=== PATIENT | male | born 1935 | race Caucasian/White ===

== ENCOUNTER 2019-07-09 12:34 | Emergency (ER) | payer MEDICARE ==
[~2019-07-09] VITALS: Ht 177.8 cm; Wt 63.0 kg
--- NOTE | 2019-07-09 12:40 | NUR ---
minimal bleeding at triage, applied nose clamp
[2019-07-09] MEDS ORDERED: oxymetazoline 15 ML nasal spray NS ONE (13:05)
[2019-07-09] MEDS ORDERED: LISI-600 PO (13:25)
[2019-07-09 14:01] VITALS: BP 134/67
== END 2019-07-09 14:19 | disposition home or self-care (01) ==
LOC: ER 12:35
DX: R04.0 Epistaxis (principal); Z79.899 Other long term (current) drug therapy
CPT/HCPCS: 99282

== ENCOUNTER 2021-10-16 12:34 | Emergency (ER) | payer MEDICARE ==
[~2021-10-16] VITALS: Ht 177.8 cm; Wt 72.8 kg
[~2021-10-16 12:34] MED LIST: LISI20TA28 PO
[2021-10-16 13:19] LABS: BASOPHILS % (AUTO) 0.7 % (0-1); EOSINOPHILS # (AUTO) 0.2 X10'3 (0-0.9); EOSINOPHILS % (AUTO) 2.4 % (0-6); HEMATOCRIT 39.4 % (42.0-52.0); HEMOGLOBIN 13.2 g/dl (14.0-17.9); LYMPHOCYTES # (AUTO) 1.2 X10'3 (1.1-4.8); LYMPHOCYTES % (AUTO) 19.3 % (21-51); MEAN CORPUSCULAR HEMOGLOBIN 28.7 PG (27.0-31.0); MEAN CORPUSCULAR HGB CONC 33.5 g/dL (33.0-36.5); MEAN CORPUSCULAR VOLUME 85.8 FL (78-98); MONOCYTES # (AUTO) 0.5 X10'3 (0-0.9); MONOCYTES % (AUTO) 8.3 % (2-12); NEUTROPHILS # (AUTO) 4.4 X10'3 (1.8-7.7); NEUTROPHILS % (AUTO) 69.3 % (42-75); PLATELET COUNT 170 X10'3 (140-440); RED CELL DISTRIBUTION WIDTH 14.5 % (11.5-14.5); WHITE BLOOD COUNT 6.3 X10'3 (4.5-11.0)
[2021-10-16 13:37] LABS: ALANINE AMINOTRANSFERASE 30 U/L (12-78); ALBUMIN 4.1 G/DL (3.4-5.0); ALBUMIN/GLOBULIN RATIO 1.2 (1.1-1.5); ALKALINE PHOSPHATASE 61 IU/L (46-116); ANION GAP 5 (8-16); ASPARTATE AMINO TRANSFERASE 20 U/L (10-37); BILIRUBIN,TOTAL 0.6 MG/DL (0.1-1.0); BLOOD UREA NITROGEN 24 MG/DL (7-18); BUN/CREATININE RATIO 23.8 (5.4-32.0); CALCIUM 9.3 MG/DL (8.5-10.1); CHLORIDE 104 MMOL/L (99-107); CREATININE 1.01 MG/DL (0.60-1.10); GLUCOSE 93 MG/DL (70-104); POTASSIUM 4.7 MMOL/L (3.5-5.1); SODIUM 139 MMOL/L (135-145); TOTAL CARBON DIOXIDE 30.1 MMOL/L (24-32); TOTAL PROTEIN 7.5 G/DL (6.4-8.2); eGFR 70 ML/MIN
[2021-10-16 15:57] VITALS: BP 152/84
== END 2021-10-16 15:58 | disposition home or self-care (01) ==
LOC: ER 12:34
DX: R07.89 Other chest pain (principal); I10 Essential (primary) hypertension; I48.91 Unspecified atrial fibrillation; Z79.899 Other long term (current) drug therapy
CPT/HCPCS: 36415; 71045; 80053; 83880; 84484; 85025; 93005; 99285

== ENCOUNTER 2022-01-09 06:04 | Day surgery (SDC) | payer MEDICARE ==
[2022-01-08 12:27] LABS: HEMOGLOBIN 12.9 g/dl (14.0-17.9); MEAN CORPUSCULAR HGB CONC 33.1 g/dL (33.0-36.5); RED CELL DISTRIBUTION WIDTH 14.5 % (11.5-14.5)
[2022-01-08 12:29] LABS: BASOPHILS % (AUTO) 0.5 % (0-1); EOSINOPHILS # (AUTO) 0.1 X10'3 (0-0.9); EOSINOPHILS % (AUTO) 2.8 % (0-6); MEAN CORPUSCULAR HEMOGLOBIN 28.5 PG (27.0-31.0); MEAN PLATELET VOLUME 7.9 FL (7.4-10.4); MONOCYTES # (AUTO) 0.4 X10'3 (0-0.9); MONOCYTES % (AUTO) 7.3 % (2-12); NEUTROPHILS # (AUTO) 3.3 X10'3 (1.8-7.7); NEUTROPHILS % (AUTO) 69.4 % (42-75); PLATELET COUNT 156 X10'3 (140-440); RED BLOOD COUNT 4.53 X10'6 (4.70-6.10); WHITE BLOOD COUNT 4.8 X10'3 (4.5-11.0)
[2022-01-08 12:34] LABS: ALBUMIN 3.6 G/DL (3.4-5.0); ANION GAP 3 (8-16); BLOOD UREA NITROGEN 23 MG/DL (7-18); BUN/CREATININE RATIO 18.5 (5.4-32.0); CHLORIDE 104 MMOL/L (99-107); CREATININE 1.24 MG/DL (0.60-1.10); GLUCOSE 141 MG/DL (70-104); POTASSIUM 4.6 MMOL/L (3.5-5.1); SODIUM 137 MMOL/L (135-145); TOTAL CARBON DIOXIDE 29.9 MMOL/L (24-32); eGFR 55 ML/MIN
[2022-01-08 12:38] LABS: APTT 24 SECONDS (22-32)
[~2022-01-09] VITALS: Ht 177.8 cm; Wt 72.0 kg
[2022-01-09] VITALS (12 sets, daily range): BP systolic 114–153; BP diastolic 56–79
[2022-01-09] MEDS ORDERED: diphenhydrAMINE 25mg capsule PO PRN (06:25)
[2022-01-09] MEDS ORDERED: LIDOcaine/PRILOcaine 5gm cream TP ONE (06:25)
[2022-01-09] MEDS ORDERED: LORazepam 0.5 MG tablet PO PRN (06:25)
[2022-01-09] MEDS ORDERED: normal saline 1,000 ML IV SCH (06:25)
[2022-01-09] MEDS ORDERED: APIX5TAB3 PO (06:30)
[2022-01-09] MEDS ORDERED: METO-395 PO (06:30)
[2022-01-09] MEDS ORDERED: LOSA25TA41 PO (06:30)
[2022-01-09] MEDS ORDERED: DILT-35 PO (06:30)
[2022-01-09] MEDS ORDERED: MELA2.5T PO (06:31)
[2022-01-09] MEDS ORDERED: CELE-193 PO (06:32)
[2022-01-09] MEDS ORDERED: OMEG1CAP46 PO (06:32)
[2022-01-09] MEDS ORDERED: ASPI-101 PO (06:33)
[2022-01-09] MEDS ORDERED: MULT-1085 PO (06:33)
[2022-01-09] MEDS ORDERED: sodium bicarbonate (8.4%) inj. 150 ML in dextrose 5%-water 1,000 ML IV ONE (06:45)
[2022-01-09] MEDS ORDERED: nitroGLYCERIN-Tridil 50MG/D5W 250 ML IV ONE (07:39)
[2022-01-09] MEDS ORDERED: LIDOcaine 1%/PF 5ML 10 MG/ML VIAL ONE (07:39)
[2022-01-09] MEDS ORDERED: heparin 1,000unit/ml 10ml vial 10 ML ONE (07:39)
[2022-01-09] MEDS ORDERED: verapamil 2.5 mg/ml inj IV ONE (07:39)
[2022-01-09] MEDS ORDERED: midazolam 1 mg/ML 2ml injection ONE (07:39)
[2022-01-09] MEDS ORDERED: iohexol 350MG/ML 100ml bottle IV ONE (07:39)
[2022-01-09] MEDS ORDERED: fentaNYL/PF 50MCG/1 ML 2ML syringe ONE (07:39)
[2022-01-09] MEDS ORDERED: normal saline 1000ml 1,000 ML IV SCH (09:05)
== END 2022-01-09 14:00 | disposition home or self-care (01) ==
LOC: SSTAY O 06:04
PROVIDERS: ATTEND Internal Medicine Cardiovascular Disease
DX: I25.10 Atherosclerotic heart disease of native coronary artery without angina pectoris (principal); I48.0 Paroxysmal atrial fibrillation; E78.5 Hyperlipidemia, unspecified; I87.2 Venous insufficiency (chronic) (peripheral); I10 Essential (primary) hypertension; Z79.899 Other long term (current) drug therapy; Z98.890 Other specified postprocedural states; Z98.49 Cataract extraction status, unspecified eye; Z82.49 Family history of ischemic heart disease and other diseases of the circulatory system
CPT/HCPCS: 36415; 80048; 85025; 85610; 85730; 93005; 93458; 99152; 99153; A6258; C1760; C1769; J1644; J2250; J3010; J3490; J7030; J7070; Q0163; Q9967; A6402

== ENCOUNTER 2022-01-18 17:23 | Emergency (ER) | payer MEDICARE ==
[~2022-01-18] VITALS: Ht 177.8 cm; Wt 67.3 kg
[~2022-01-18 17:23] MED LIST changes: +APIX5TAB3 PO; +ASPI-101 PO; +CELE-193 PO; +DILT-35 PO; -LISI20TA28 PO; +LOSA25TA41 PO; +MELA2.5T PO; +METO-395 PO; +MULT-1085 PO; +OMEG1CAP46 PO
[2022-01-18 17:30] VITALS: BP 145/67
[2022-01-18 17:53] LABS: BASOPHILS % (AUTO) 0.5 % (0-1); EOSINOPHILS # (AUTO) 0.1 X10'3 (0-0.9); EOSINOPHILS % (AUTO) 2.9 % (0-6); HEMATOCRIT 38.1 % (42.0-52.0); HEMOGLOBIN 12.6 g/dl (14.0-17.9); LYMPHOCYTES # (AUTO) 1.2 X10'3 (1.1-4.8); LYMPHOCYTES % (AUTO) 27.7 % (21-51); MEAN CORPUSCULAR HEMOGLOBIN 28.2 PG (27.0-31.0); MEAN CORPUSCULAR VOLUME 85.5 FL (78-98); MEAN PLATELET VOLUME 7.3 FL (7.4-10.4); MONOCYTES # (AUTO) 0.4 X10'3 (0-0.9); MONOCYTES % (AUTO) 8.2 % (2-12); NEUTROPHILS # (AUTO) 2.6 X10'3 (1.8-7.7); NEUTROPHILS % (AUTO) 60.7 % (42-75); PLATELET COUNT 143 X10'3 (140-440); RED BLOOD COUNT 4.46 X10'6 (4.70-6.10); RED CELL DISTRIBUTION WIDTH 14.4 % (11.5-14.5); WHITE BLOOD COUNT 4.3 X10'3 (4.5-11.0)
[2022-01-18 18:08] LABS: ALANINE AMINOTRANSFERASE 17 U/L (12-78); ALBUMIN 3.7 G/DL (3.4-5.0); ALBUMIN/GLOBULIN RATIO 1.1 (1.1-1.5); ANION GAP 6 (8-16); ASPARTATE AMINO TRANSFERASE 20 U/L (10-37); BILIRUBIN,TOTAL 0.5 MG/DL (0.1-1.0); BLOOD UREA NITROGEN 25 MG/DL (7-18); BUN/CREATININE RATIO 22.1 (5.4-32.0); CHLORIDE 104 MMOL/L (99-107); CREATININE 1.13 MG/DL (0.60-1.10); GLUCOSE 58 MG/DL (70-104); POTASSIUM 4.1 MMOL/L (3.5-5.1); SODIUM 137 MMOL/L (135-145); TOTAL CARBON DIOXIDE 27.3 MMOL/L (24-32); eGFR 62 ML/MIN
[2022-01-18 18:20] LABS: ALKALINE PHOSPHATASE 56 IU/L (46-116)
== END 2022-01-18 21:15 | disposition left against medical advice (07) ==
LOC: ER 17:24
DX: R25.1 Tremor, unspecified (principal); Z53.21 Procedure and treatment not carried out due to patient leaving prior to being seen by health care provider
CPT/HCPCS: 36415; 71045; 80053; 84484; 85025; 93005

== ENCOUNTER 2024-06-15 12:29 | Emergency (ER) | payer MEDICARE ==
[~2024-06-15] VITALS: Ht 180.3 cm; Wt 81.8 kg
[~2024-06-15 12:29] MED LIST changes: -MELA2.5T PO; +MELA2.5T16 PO
[2024-06-15 12:37] VITALS: BP 148/84; PULSE 75; RESP 18; TEMP 98.5; O2SAT 99
== END 2024-06-15 13:45 | disposition left against medical advice (07) ==
LOC: ER 12:29
DX: R04.0 Epistaxis (principal); Z53.21 Procedure and treatment not carried out due to patient leaving prior to being seen by health care provider